=== PATIENT | male | born 1950 | race African-American/Black ===

== ENCOUNTER 2024-03-28 14:10 | Emergency (ER) | payer OTHER, MEDICAID ==
[~2024-03-28] VITALS: Ht 188 cm; Wt 81.6 kg
[2024-03-28 14:15] VITALS: BP 122/78; PULSE 92; RESP 20; TEMP 98.1; O2SAT 95
[2024-03-28 16:00] VITALS: BP 110/73; PULSE 91; RESP 18; TEMP 98.2; O2SAT 94
== END 2024-03-28 16:00 | disposition home or self-care (01) ==
LOC: MED 14:10
DX: S09.90XA Unspecified injury of head, initial encounter (principal); Z88.8 Allergy status to other drugs, medicaments and biological substances; W22.8XXA Striking against or struck by other objects, initial encounter; Y93.89 Activity, other specified; Y92.89 Other specified places as the place of occurrence of the external cause; Y99.8 Other external cause status
CPT/HCPCS: 70450; 99284